=== PATIENT | female | born 1960 | race Caucasian/White ===

== ENCOUNTER 2016-11-04 21:48 | Emergency (ER) | payer MEDICAID ==
[2016-11-04 22:16] VITALS: BP 160/96
[2016-11-04] MEDS ORDERED: Acetaminophen/oxyCODONE 325-5 MG Tab PO ONE (23:14)
--- NOTE | 2016-11-04 23:24 | EDM.PDOC ---
ED HPI GENERAL MEDICAL PROBLEM - General Chief Complaint: ENT Problem Stated Complaint: TOOTH PAIN Time Seen by Provider: 11/04/16 23:00 Source of Information: Reports: Patient History Limitations: Reports: No Limitations - History of Present Illness INITIAL COMMENTS - FREE TEXT/NARRATIVE: 56 year old female presents for evaluation and treatment of tooth pain. Reports the pain is located in the right medial incisor. No trauma to the tooth. Pain started several days ago. She has identified an area she believes is abscessed. She describes the pain as a constant "100 out of 10" pain. Has been taking OTC medications with no relief. Reports the pain extends superiorly into her sinuses. No fevers, chills, nausea or vomiting. She has overall poor dentition. She does not recall the last time she has seen dental. Upper Tooth/Teeth Pain Score (Numeric/FACES): 10 - Related Data Allergies Allergy/AdvReac Type Severity Reaction Status Date / Time No Known Allergies Allergy Verified 11/04/16 22:16 Home Meds: Home Meds Amoxicillin/Clavulanate K [Augmentin 875 MG/125 MG] 1 tab PO Q12HR #19 tablet [Rx] Aspirin [Ecotrin] 11/04/16 [History] Hydrocodone/Acetaminophen [Piedmont 5-325] 1 tab PO Q6H PRN #10 tablet 11/04/16 [Rx ] Metoprolol Tartrate 11/04/16 [History] Ticagrelor [Brilinta] 11/04/16 [History] atorvaSTATin [Lipitor] 40 mg PO BEDTIME 11/04/16 [History] Past Medical History Cardiovascular History: Reports: Hypertension Social & Family History - Family History Family Medical History: Noncontributory ED ROS ENT - Review of Systems Review Of Systems: See Below Constitutional: Denies: Fever, Chills HEENT: Reports: Dental Pain (right superior, medial incisor ), Sinus Problem GI/Abdominal: Denies: Nausea, Vomiting ED EXAM, ENT - Physical Exam Exam: See Below Exam Limited By: No Limitations General Appearance: Alert, WD/WN, No Apparent Distress Ears: Normal External Exam, Normal Canal, Hearing Grossly Normal, Normal TMs Nose: Normal Inspection Mouth/Throat: Normal Inspection, Dental Abcess (#8), Dental Pain (#8), Dental Tenderness (#8), Dental Trauma (multiple missing and broken teeth), Gum Swelling (and gum erythema), Other (diffuse dental disears with multiple carries ; tooth #8 has severe carries extending into the dentin) Respiratory/Chest: No Respiratory Distress, Lungs Clear, Normal Breath Sounds Cardiovascular: Normal Peripheral Pulses, Regular Rate, Rhythm Neurological: Alert, Oriented, Normal Cognition Psychiatric: Normal Affect, Normal Mood Skin: Warm, Dry, Normal Color Course - Vital Signs Last Recorded V/S: Last Vital Signs Temp 36.9 C 11/04/16 22:14 Pulse 94 11/04/16 22:14 Resp 18 11/04/16 22:14 BP 160/96 H 11/04/16 22:14 Pulse Ox 98 11/04/16 22:14 - Orders/Labs/Meds Meds: Medications Discontinued Medications Generic Name Dose Route Start Last Admin Trade Name Freq PRN Reason Stop Dose Admin Amoxicillin/Clavulanate Potassium 1 tab 11/04/16 23:25 11/04/16 23:50 Augmentin 875 Mg/125 Mg PO 11/04/16 23:26 1 tab ONETIME ONE Administration Oxycodone/Acetaminophen 1 tab 11/04/16 23:14 11/04/16 23:19 Percocet 325-5 Mg PO 11/04/16 23:15 1 tab ONETIME ONE Administration Departure - Departure Time of Disposition: 23:15 Disposition: Home, Self-Care 01 Condition: Fair Clinical Impression: Dental abscess - Discharge Information Prescriptions: Amoxicillin/Clavulanate K [Augmentin 875 MG/125 MG] 1 tab PO Q12HR #19 tablet Hydrocodone/Acetaminophen [Piedmont 5-325] 1 tab PO Q6H PRN #10 tablet PRN Reason: Pain Instructions: Dental Abscess, [id number] Referrals: PCP,None [Primary Care Provider] - Forms: ED Department Discharge Additional Instructions: Take the Augmentin as prescribed. 1 tab twice a day for 10 days. your first dose was given in the ER. Take this medication with food. Recommend a probiotic or yogurt. [id number] ibuprofen 600 mg every 6 hours for pain. Her pain not relieved by ibuprofen you may take one Piedmont every 6 hours as needed for severe pain. Do not drive or operate machinery within 12 hours of taking the Piedmont. Piedmont can be habit-forming, take as few as needed to control your pain. See a dentist as soon as you're able to. If you require financial services I recommend bridging the gap in [place] is able to work with uninsured and underinsured. call [phone] to discuss with them further. Please return to ER if your symptoms change or worsen.
[2016-11-04] MEDS ORDERED: Amoxicillin/Clavulanate K 875-125 MG Tab PO ONE (23:25)
== END 2016-11-04 23:53 | disposition home or self-care (01) ==
LOC: JD.ED 21:48
DX: K04.7 Periapical abscess without sinus (principal); I10 Essential (primary) hypertension; Z79.82 Long term (current) use of aspirin
CPT/HCPCS: 99282; A9270; 99283

== ENCOUNTER 2016-12-23 18:45 | Emergency (ER) | payer MEDICAID ==
[2016-12-23 19:01] VITALS: BP 143/78
[2016-12-23] MEDS ORDERED: Acetaminophen/oxyCODONE 325-5 MG Tab PO ONE (19:07)
[2016-12-23] MEDS ORDERED: Gentamicin 0.3% Ophth Soln 15 ML Bottle EARRT ONE (19:08)
--- NOTE | 2016-12-23 19:09 | EDM.PDOC ---
ED HPI GENERAL MEDICAL PROBLEM - General Chief Complaint: ENT Problem Stated Complaint: poss right ear infection Time Seen by Provider: 12/23/16 19:03 Source of Information: Reports: Patient History Limitations: Reports: No Limitations - History of Present Illness INITIAL COMMENTS - FREE TEXT/NARRATIVE: 56-year-old female presents to the ED with right ear pain 6 days duration. Unable to touch the ear or sleep on that side. No known injuries to the ear. Current pain is constant throbbing occasional sharp and stabbing but the most part radiates down the right side of her mandible. Some pain with swallowing. She also feels pressure in the year when she holds her nose and blows. Gets temporary relief by doing this. Has had a mild cold over the last week. Denies any cough or sputum production. Hearing is muffled on the right side. Denies any problems with the left side. Onset: Gradual (Develop an of increased pain in ) Onset Date: 12/23/16 Duration: Day(s): Location: Reports: Face (Right ear and jamal-face.) Quality: Reports: Ache, Sharp, Stabbing, Throbbing Severity: Severe Improves with: Reports: None (Current pain is 8 out of 10.) Worsens with: Reports: Other Context: Denies: Activity, Exercise, Lifting, Sick Contact, Trauma, Other Associated Symptoms: Reports: No Other Symptoms Treatments RESERVE OFFICER: Reports: Other (see below) Other Treatments RESERVE OFFICER: used peroxide in the ear Right Ear Pain Score (Numeric/FACES): 7 - Related Data Allergies Allergy/AdvReac Type Severity Reaction Status Date / Time No Known Allergies Allergy Verified 11/04/16 22:16 Home Meds: Home Meds Aspirin [Ecotrin] 81 mg PO DAILY 11/04/16 [History] Metoprolol Tartrate 25 mg PO DAILY 11/04/16 [History] Ticagrelor [Brilinta] 90 mg PO DAILY 11/04/16 [History] atorvaSTATin [Lipitor] 40 mg PO BEDTIME 11/04/16 [History] Amoxicillin/Potassium Clav [Augmentin 500-125 Tablet] 1 each PO BID #16 tablet 12/23/16 [Rx] oxyCODONE HCl/Acetaminophen [Percocet 5-325 mg Tablet] 1 - 2 each PO Q4H PRN # 20 tablet 12/23/16 [Rx] Past Medical History Cardiovascular History: Reports: High Cholesterol, Hypertension, [place], Stents Social & Family History - Family History Family Medical History: Noncontributory - Tobacco Use Smoking Status *Q: Current Every Day Smoker Years of Tobacco use: 30 Packs/Tins Daily: 0.3 - Caffeine Use Caffeine Use: Reports: Soda - Recreational Drug Use Recreational Drug Use: No - Living Situation & Occupation Living situation: Reports: Occupation: Unemployed (Her and her relocated from [place] to [place] within the last 3 weeks.) ED ROS ENT - Review of Systems Review Of Systems: See Below Constitutional: Denies: Fever, Chills, Malaise, Weakness, Fatigue, Decreased Appetite, Weight Loss HEENT: Reports: Ear Pain. Denies: Ear Discharge (Severe right side), Eye Discharge, Eye Pain Respiratory: Reports: Shortness of Breath (On exertion.), Cough (Cough from cigarette smoking.), Sputum (Occasional brownish sputum production) Cardiovascular: Reports: No Symptoms, Dyspnea on Exertion Endocrine: Reports: No Symptoms GI/Abdominal: Reports: No Symptoms : Reports: No Symptoms Musculoskeletal: Reports: Back Pain, Joint Pain (Knees and hips occasionally.) Skin: Reports: No Symptoms Neurological: Reports: No Symptoms Psychiatric: Reports: No Symptoms Hematologic/Lymphatic: Reports: No Symptoms Immunologic: Reports: No Symptoms ED EXAM, ENT - Physical Exam Exam: See Below Exam Limited By: No Limitations General Appearance: Alert, WD/WN, Mild Distress Eye Exam: Bilateral Eye: Normal Inspection Ears: Auricular Tenderness (Severe on palpation of the tragus right side), Canal Swelling (Moderate anterior inferiorly.), TM Dullness, TM Fluid. No: Normal Canal, Hearing Grossly Normal, Normal TMs, Mastoid Swelling, Mastoid Tenderness, Canal Blood, Canal Discharge, Canal Foreign Body, TM Erythema, TM Blood Nose: Normal Inspection Mouth/Throat: Normal Inspection, Normal Gums, Normal Lips, Normal Teeth Head: Atraumatic, Normocephalic Neck: Normal Inspection, Supple, Non-Tender, Full Range of Motion. No: Lymphadenopathy (L), Lymphadenopathy (R) Course - Vital Signs Last Recorded V/S: Last Vital Signs Temp 36.8 C 12/23/16 18:59 Pulse 89 12/23/16 18:59 Resp 20 12/23/16 18:59 BP 143/78 H 12/23/16 18:59 Pulse Ox 98 09/30/17 18:59 - Orders/Labs/Meds Meds: Medications Discontinued Medications Generic Name Dose Route Start Last Admin Trade Name Manju PASTOR Reason Stop Dose Admin Gentamicin Sulfate 5 ml 12/23/16 19:08 12/23/16 19:22 Garamycin 0.3% Ophth Soln EARRT 12/23/16 19:09 5 ml ONETIME ONE Administration Oxycodone/Acetaminophen 2 tab 12/23/16 19:07 12/23/16 19:22 Percocet 325-5 Mg PO 12/23/16 19:08 2 tab ONETIME ONE Administration - Radiology Interpretation Free Text/Narrative:: 56-year-old female presents to the ED with 6 day duration of right ear pain that is gradually worsening. Unable to touch the ear or to lay down to sleep on that side. No known injuries. No previous similar problems. Appreciates muffled hearing on the right side. Pain also in the ear with swallowing. Has had mild cold symptoms over the last week. Denies cough or sputum production. Does not feel her sinuses are congested. Examination reveals exquisite tenderness on tugging on the earlobe and touching the tragus. She has an otitis externa involving the anterior and inferior aspect of the ear canal. Only small portion of the eardrum could be visualized appears to be mildly erythematous with full of fluid with a serous otitis media. There are falx itself is normal was no cervical adenopathy. Mild pain anterior to the air in the distribution of the temporal mandibular joint. Treated with gentamicin eardrops 2 drops every 3 hours for 2 days then 2 drops 4 times daily for another week. Placed on Augmentin 500 mg twice daily for the next 8 days to clear up infection. Primarily in the middle ear cavity. Pain relief will be Percocet 5/3/25 milligrams one or 2 every 4-6 hours for pain relief. She will continue either Aleve 2 tablets every 8 hours or Motrin 6 mg every 6 hours for pain and inflammation relief. She is to expect marked improvement over the next 72 hours. Departure - Departure Time of Disposition: :09 Disposition: Home, Self-Care 01 Condition: Fair Clinical Impression: Otitis externa Qualifiers: Otitis externa type: other infective Chronicity: acute Laterality: right Qualified Code(s): H60.391 - Other infective otitis externa, right ear - Discharge Information Prescriptions: Amoxicillin/Potassium Clav [Augmentin 500-125 Tablet] 1 each PO BID #16 tablet oxyCODONE HCl/Acetaminophen [Percocet 5-325 mg Tablet] 1 - 2 each PO Q4H PRN # 20 tablet PRN Reason: pain relief. Instructions: Otitis Externa, [id number] Referrals: PCP,None [Primary Care Provider] - Forms: ED Department Discharge Additional Instructions: Evaluation in the emergency room today in regards to severe right ear pain 6 days. Examination reveals reveals an infection in the ear canal on the right side with partial occlusion of the ear canal from swelling. This is causing pain to be referred into the jaw joint and down to the mandible and neck. Treatment is gentamicin drops 2 drops to the right ear every 3 hours for 2 days then 4 times daily for 7 day Antibiotic Augmentin 500 mg twice daily for 8 days as well to help clear up infection. Continue Aleve 2 tablets every 8 hours or Motrin 600 mg every 6 hours for pain and inflammation. Percocet tablets 07/26/24 one or 2 every 4-6 hours for pain relief. Expect marked improvement over the next 72 hours. Follow-up if her is not completely back to normal in 8 days time.
== END 2016-12-23 19:25 | disposition home or self-care (01) ==
LOC: JD.ED 18:45
DX: H60.391 Other infective otitis externa, right ear (principal); E78.00 Pure hypercholesterolemia, unspecified; I10 Essential (primary) hypertension; I25.2 Old myocardial infarction; F17.210 Nicotine dependence, cigarettes, uncomplicated; Z79.82 Long term (current) use of aspirin; Z79.899 Other long term (current) drug therapy
CPT/HCPCS: 99283; A9270

== ENCOUNTER 2017-01-28 13:41 | Emergency (ER) | payer MEDICAID, OTHER ==
[2017-01-28 13:59] VITALS: BP 158/94
--- NOTE | 2017-01-28 14:46 | EDM.PDOC ---
ED HPI GENERAL MEDICAL PROBLEM - General Chief Complaint: ENT Problem Stated Complaint: EAR PAIN Time Seen by Provider: 01/28/17 13:51 Source of Information: Reports: Patient History Limitations: Reports: No Limitations - History of Present Illness INITIAL COMMENTS - FREE TEXT/NARRATIVE: The patient presents with right ear pain. She has had trouble with her ear since the end of November. She had otitis externa that was treated with amoxicillin and ear drops. She did get better for awhile. The pain came back a couple weeks ago. She went to the clinic in [place] and they irrigated her ear and got out some white drainage. They did not put her on any antibiotics. She still has pain and she has decreased hearing. She is non toxic. She has no fever or chills. She has never had trouble with that ear before. Onset: Gradual Duration: Week(s): Location: Reports: Other (right ear) Quality: Reports: Sharp Severity: Severe Improves with: Reports: None Worsens with: Reports: None Associated Symptoms: Reports: No Other Symptoms Right Ear Pain Score (Numeric/FACES): 7 - Related Data Allergies Allergy/AdvReac Type Severity Reaction Status Date / Time No Known Allergies Allergy Verified 11/04/16 22:16 Home Meds: Home Meds Aspirin [Ecotrin] 81 mg PO DAILY 11/04/16 [History] Metoprolol Tartrate 25 mg PO DAILY 11/04/16 [History] Ticagrelor [Brilinta] 90 mg PO DAILY 11/04/16 [History] atorvaSTATin [Lipitor] 40 mg PO BEDTIME 11/04/16 [History] Ofloxacin [Floxin 0.3% Otic Soln] 3 drop EARRT BID #1 bottle 01/28/17 [Rx] oxyCODONE HCl/Acetaminophen [Percocet 5-325 mg Tablet] 1 - 2 each PO Q6HR PRN # 20 tablet 01/28/17 [Rx] Past Medical History Cardiovascular History: Reports: High Cholesterol, Hypertension, [place], Stents Social & Family History - Family History Family Medical History: Noncontributory - Tobacco Use Smoking Status *Q: Current Every Day Smoker Years of Tobacco use: 20 Packs/Tins Daily: 0.3 - Caffeine Use Caffeine Use: Reports: Soda - Recreational Drug Use Recreational Drug Use: No - Living Situation & Occupation Living situation: Reports: Occupation: Unemployed (Her and her relocated from [place] to [employer] within the last 3 weeks.) ED ROS ENT - Review of Systems Review Of Systems: See Below Constitutional: Reports: No Symptoms HEENT: Reports: Ear Pain Respiratory: Reports: No Symptoms Cardiovascular: Reports: No Symptoms Endocrine: Reports: No Symptoms GI/Abdominal: Reports: No Symptoms : Reports: No Symptoms Musculoskeletal: Reports: No Symptoms ED EXAM, ENT - Physical Exam Exam: See Below Exam Limited By: No Limitations General Appearance: Alert, No Apparent Distress Ears: Other (Pain upon palpation to the tragus. No edema or pain behind the ear. Erythema to the TM and a large perforation with white, thick discharge.) Course - Vital Signs Last Recorded V/S: Last Vital Signs Temp 97.0 F 01/28/17 13:57 Pulse 89 01/28/17 13:57 Resp 20 01/28/17 13:57 BP 158/94 H 01/28/17 13:57 Pulse Ox 98 01/28/17 13:57 - Re-Assessments/Exams Free Text/Narrative Re-Assessment/Exam: 01/28/17 14:[address] Alford at [facility] in [place] and he recommended ofoxacin drops and he would like to see her next week. Departure - Departure Time of Disposition: 14:50 Disposition: Home, Self-Care 01 Condition: Good Clinical Impression: Otitis media Qualifiers: Otitis media type: suppurative Chronicity: acute Laterality: right Recurrence: recurrent Spontaneous tympanic membrane rupture: with spontaneous rupture Qualified Code(s): H66.014 - Acute suppurative otitis media with spontaneous rupture of ear drum, recurrent, right ear - Discharge Information Prescriptions: oxyCODONE HCl/Acetaminophen [Percocet 5-325 mg Tablet] 1 - 2 each PO Q6HR PRN # 20 tablet PRN Reason: Pain Ofloxacin [Floxin 0.3% Otic Soln] 3 drop EARRT BID #1 bottle Referrals: PCP,None [Primary Care Provider] - Additional Instructions: Use the ofoxacin drops 3 drops in the right ear 2 times per day for 1 week. Take the percocet 1 to 2 pills every 6 hours as needed for pain. Follow up with Dr Alford or one of his partners at the ENT clinic at [facility]. His number is . Please return if you are worse.
== END 2017-01-28 15:00 | disposition home or self-care (01) ==
LOC: JD.ED 13:41
DX: H66.014 Acute suppurative otitis media with spontaneous rupture of ear drum, recurrent, right ear (principal); F17.210 Nicotine dependence, cigarettes, uncomplicated; Z79.82 Long term (current) use of aspirin; Z79.899 Other long term (current) drug therapy
CPT/HCPCS: 99283

== ENCOUNTER 2017-02-02 10:48 | Emergency (ER) | payer MEDICAID, OTHER ==
--- NOTE | 2017-02-02 11:52 | EDM.PDOC ---
ED HPI GENERAL MEDICAL PROBLEM - General Chief Complaint: Cardiovascular Problem Stated Complaint: SOB/HX OF HEART ISSUES Time Seen by Provider: 02/02/17 11:55 Source of Information: Reports: Patient History Limitations: Reports: No Limitations - History of Present Illness INITIAL COMMENTS - FREE TEXT/NARRATIVE: Patient is a 57-year-old female who has a history of heart attack with stent placement approximately one year ago in [facility]. She was placed on brilinta, BB, statin, and ASA. States due to insurance coverage she was unable to continue on effient. Thus was taking brilinta samples given by Cardiologists every month. States approximately 2 months ago her and herself moved to [place] for work. 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 She is not been taking any of her prescribed medications for her heart since moving. She's continues take baby aspirin every day. States since moving here she has gained approximately 15 pounds over the past 2 months with increased shortness of breath with exertion. Denies any orthopnea or PND. Denies any chest pain, nausea vomiting, diaphoresis, back pain , pain in her neck, pain into her arm, blood in stools. Patient states they ruled out pulmonary hypertension with her episode of having a heart attack. She has no history of DVT/PE. Denies any lower leg swelling and pain. She is on no additional medications. Of note patient is gained approximate 60 pounds since her [place] in total. - Related Data Allergies Allergy/AdvReac Type Severity Reaction Status Date / Time No Known Allergies Allergy Verified 02/02/17 10:57 Home Meds: Home Meds Aspirin [Ecotrin] 81 mg PO DAILY 11/04/16 [History] Ofloxacin [Floxin 0.3% Otic Soln] 3 drop EARRT BID #1 bottle 01/28/17 [Rx] oxyCODONE HCl/Acetaminophen [Percocet 5-325 mg Tablet] 1 - 2 each PO Q6HR PRN # 20 tablet 01/28/17 [Rx] Metoprolol Tartrate 25 mg PO BID #60 tablet 02/02/17 [Rx] Ticagrelor [Brilinta] 90 mg PO DAILY #30 tablet 02/02/17 [Rx] atorvaSTATin [Lipitor] 40 mg PO BEDTIME #30 tablet 02/02/17 [Rx] Past Medical History HEENT History: Reports: Impaired Vision, Otitis Media, Other (See Below) Other HEENT History: "My teeth are really bad." Cannot afford glasses. 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: Musculoskeletal History: Reports: Fracture, Gout Neurological History: Reports: Migraines - Infectious Disease History Infectious Disease History: Reports: Chicken Pox Social & Family History - Family History Family Medical History: Noncontributory - Tobacco Use Smoking Status *Q: Current Every Day Smoker Years of Tobacco use: 20 Packs/Tins Daily: 0.3 Second Hand Smoke Exposure: Yes - Caffeine Use Caffeine Use: Reports: Soda - Recreational Drug Use Recreational Drug Use: No - Living Situation & Occupation Living situation: Reports: Occupation: Unemployed (Her and her relocated from [place] to [place] within the last 3 weeks.) ED ROS GENERAL - Review of Systems Review Of Systems: See Below ED EXAM, GENERAL - Physical Exam Exam: See Below Exam Limited By: No Limitations General Appearance: Alert, WD/WN, No Apparent Distress Ears: Hearing Grossly Normal Nose: Normal Inspection Throat/Mouth: Normal Voice, No Airway Compromise Neck: Normal Inspection, Supple Respiratory/Chest: No Respiratory Distress, Lungs Clear, Normal Breath Sounds, No Accessory Muscle Use, Chest Non-Tender Cardiovascular: Normal Peripheral Pulses, Regular Rate, Rhythm, No Murmur ( obvious) Peripheral Pulses: 2+: Radial (L), Radial (R) GI/Abdominal: Normal Bowel Sounds, Soft, Non-Tender, No Organomegaly, No Distention Back Exam: Normal Inspection Extremities: Normal Inspection, Non-Tender, No Pedal Edema, Normal Capillary Refill Neurological: Alert, Oriented, CN II-XII Intact, Normal Cognition, No Motor/ Sensory Deficits Psychiatric: Normal Affect, Normal Mood Skin Exam: Warm, Dry, Intact, Normal Color Course - Vital Signs Last Recorded V/S: Last Vital Signs Temp 97.4 F 02/02/17 10:55 Pulse 88 02/02/17 14:50 Resp 18 02/02/17 14:50 BP 107/69 02/02/17 14:50 Pulse Ox 95 02/02/17 14:50 - Orders/Labs/Meds Orders: Active Orders 24 hr Category Date Time Status EKG 12 Lead [EKG Documentation Completion] [RC] STAT Care 02/02/17 14:25 Active Labs: Laboratory Tests 02/02/17 02/02/17 02/02/17 Range/Units 11:30 11:30 11:30 WBC 8.73 (3.98-10.04) K/mm3 RBC 4.69 (3.98-5.22) M/mm3 Hgb 13.7 (11.2-15.7) gm/L Hct 41.8 (34.1-44.9) % MCV 89.1 (79.4-94.8) fl MCH 29.2 (25.6-32.2) pg MCHC 32.8 (32.2-35.5) g/dl RDW Std Deviation 44.5 (36.4-46.3) fL Plt Count 248 (182-369) K/mm3 MPV 11.8 (9.4-12.3) fl Neut % (Auto) 43.8 (34.0-71.1) % Lymph % (Auto) 43.5 (19.3-51.7) % Murray % (Auto) 6.9 (4.7-12.5) % Eos % (Auto) 5.3 (0.7-5.8) Baso % (Auto) 0.3 (0.1-1.2) % Neut # (Auto) 3.82 (1.56-6.13) K/mm3 Lymph # (Auto) 3.80 H (1.18-3.74) K/mm3 Murray # (Auto) 0.60 H (0.24-0.36) K/mm3 Eos # (Auto) 0.46 H (0.04-0.36) K/mm3 Baso # (Auto) 0.03 (0.01-0.08) K/mm3 PT 10.3 (8.0-13.0) SECONDS INR 0.95 APTT 25 (22-36) SECONDS Sodium 141 (136-145) mEq/L Potassium 4.2 (3.5-5.1) mEq/L Chloride 107 (98-107) mEq/L Carbon Dioxide 25 (21-32) mEq/L Anion Gap 13.2 (5-15) BUN 23 H (7-18) mg/dL Creatinine 1.1 H (0.55-1.02) mg/dL Est Cr Clr Drug Dosing 62.49 mL/min Estimated GFR (MDRD) 52 (>60) mL/min BUN/Creatinine Ratio 20.9 H (14-18) Glucose 172 H (74-106) mg/dL Calcium 9.6 (8.5-10.1) mg/dL Total Bilirubin 0.2 (0.2-1.0) mg/dL AST 29 (15-37) U/L ALT 43 (14-59) U/L Alkaline Phosphatase 218 H (46-116) U/L Troponin I < 0.017 (0.00-0.056) ng/mL C-Reactive Protein 2.8 H* (<1.0) mg/dL NT-Pro-B Natriuret Pep 34 (0-125) pg/mL Total Protein 7.6 (6.4-8.2) g/dl Albumin 2.9 L (3.4-5.0) g/dl Globulin 4.7 gm/dL Albumin/Globulin Ratio 0.6 L (1-2) - Re-Assessments/Exams Free Text/Narrative Re-Assessment/Exam: IV established. Initial labs and studies include CBC, chem 14, CRP, coag studies , proBNP, troponin, chest x-ray one view, and EKG. Will have patient sign consent to obtain medical records from [facility]. EKG: Sinus bradycardia at a rate of [address] changes noted. 02/02/17 12:29 chest x-ray reviewed with Dr. Dugan. Tortuous aorta with mild increased pulmonary vascularization. Final interpretation is pending. 02/02/17 12:[address] [facility]. Patient had an STEMI with proximal LAD stent placement. This was complicated by acute stent thrombosis. She has many bare metal stents to the proximal LAD. She is supposed be taking metoprolol tartrate 25 mg 1 tablet with food twice daily, atorvastatin calcium 40 mg tablet 1 tablet orally once a day, Effient 10 mg tablet orally, aspirin 81 mg tablet daily. As dicatated in the HPI patient has been taking brilinta due to insurance not covering effient. 02/02/17 14:25 Labs reviewed: CBC essentially normal. Sodium 141, potassium 4.2 , AG 13.2, creatinine 1.1, glucose 172, alk phosphatase to 18, troponin less than 0.017, and CRP mildly elevated 2.8. Pro BNP was 34. Patient has [place] Medicaid. Unclear if brilinta and or effiient will be covered without prior authorization.Contacted [facility]. States plavix and brilinta will be covered for sure. Will discharge patient home with prescription for metoprolol, atorvastatin, and brilinta. She has appointment with [facility] 02/07/2017. Departure - Departure Time of Disposition: 14:25 Disposition: Home, Self-Care 01 Condition: Good Clinical Impression: SOBOE (shortness of breath on exertion), Presence of bare metal stent in LAD coronary artery Prescriptions: atorvaSTATin [Lipitor] 40 mg PO BEDTIME #30 tablet Metoprolol Tartrate 25 mg PO BID #60 tablet Ticagrelor [Brilinta] 90 mg PO DAILY #30 tablet Instructions: Shortness of Breath, [id number] Referrals: PCP,None [Primary Care Provider] - Forms: ED Department Discharge Additional Instructions: As discussed will have you start taking the atorvastatin, Brilinta, metoprolol, and aspirin as prescribed. Keep appointment with data control clerk for 07 of February as scheduled. Stop smoking. Eat a balanced cardiac diet. Refrain from any activities that cause worsening of symptoms. Return to the ED if you develop any new or worsening symptoms. - My Orders Last 24 Hours: My Active Orders 02/02/17 14:25 EKG 12 Lead [EKG Documentation Completion] [RC] STAT - Assessment/Plan Last 24 Hours: My Active Orders 02/02/17 14:25 EKG 12 Lead [EKG Documentation Completion] [RC] STAT
--- NOTE | 2017-02-02 13:15 | CR ---
Chest: Portable view of the chest was obtained. Comparison: No prior study. Heart size and mediastinum are within normal limits for portable technique. Lungs are clear. Bony structures are grossly intact. Impression: 1. Nothing acute is identified on portable chest x-ray. Diagnostic code #1
[2017-02-02 17:48] VITALS: BP 107/69
== END 2017-02-02 14:50 | disposition home or self-care (01) ==
LOC: JD.ED 10:48
DX: R06.02 Shortness of breath (principal); I10 Essential (primary) hypertension; E78.00 Pure hypercholesterolemia, unspecified; I25.2 Old myocardial infarction; F17.210 Nicotine dependence, cigarettes, uncomplicated; Z95.5 Presence of coronary angioplasty implant and graft; Z79.82 Long term (current) use of aspirin; Z79.899 Other long term (current) drug therapy
CPT/HCPCS: 36415; 71010; 71010-26; 80053; 83880; 84484; 85025; 85610; 85730; 86140; 93005; 93010; 99284; 99285-25

== ENCOUNTER 2017-06-16 17:41 | Emergency (ER) | payer MEDICAID ==
[2017-06-16 17:52] VITALS: BP 160/91
[2017-06-16] MEDS ORDERED: Ketorolac 60 MG/2 ML SDV IM ONE (18:49)
--- NOTE | 2017-06-16 20:35 | EDM.PDOC ---
ED HPI GENERAL MEDICAL PROBLEM - General Chief Complaint: Respiratory Problem Stated Complaint: HARD TIME BREATHING COLD/BACK PAINPC Time Seen by Provider: 06/16/17 20:33 Source of Information: Reports: Patient History Limitations: Reports: No Limitations - History of Present Illness INITIAL COMMENTS - FREE TEXT/NARRATIVE: 57-year-old female presents for evaluation and treatment of shortness of breath and back pain. Para patient reports that she is experiencing shortness of breath and wheezing. States that this is worse at night. Has been going on for about the last 4 weeks. She did have a cold some time ago. Reports coughing fits associated with this. She denies any fevers, nausea, vomiting, chest pain or diaphoresis. States she does get short of breath on exertion. Has a significant cardiac history for NE about one year ago. 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 She is currently on Effient. She reports that she was diagnosed with allergy some years ago. She was previously on inhalers and this seemed to help with her shortness of breath and wheezing. She feels that this is allergies today. No fevers, chills or nausea. Patient is also complaining of low back pain. Since this is been well for several years. It is located across her lower back. Worse with standing. Improves with sitting. She reports some radiation into her right lateral leg. No numbness or tingling in the leg. No weakness in the legs. Back Pain Score (Numeric/FACES): 10 - Related Data Allergies Allergy/AdvReac Type Severity Reaction Status Date / Time No Known Allergies Allergy Verified 02/02/17 10:57 Home Meds: Home Meds Aspirin [Ecotrin] 81 mg PO DAILY 11/04/16 [History] Metoprolol Tartrate 25 mg PO BID #60 tablet 02/02/17 [Rx] atorvaSTATin [Lipitor] 40 mg PO BEDTIME #30 tablet 02/02/17 [Rx] Albuterol [IMW: Ventolin HFA] 2 puff INH .TWICE DAILY #18 gm 06/16/17 [Rx] Orphenadrine [Norflex] 100 mg PO BID PRN #20 tab.er 06/16/17 [Rx] Prasugrel [Effient] 10 mg PO DAILY 06/16/17 [History] Past Medical History HEENT History: Reports: Impaired Vision, Otitis Media Other HEENT History: "My teeth are really bad." Cannot afford glasses. 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: Musculoskeletal History: Reports: Fracture, Gout Neurological History: Reports: Migraines - Infectious Disease History Infectious Disease History: Reports: Chicken Pox Social & Family History - Family History Family Medical History: Noncontributory - Tobacco Use Smoking Status *Q: Current Every Day Smoker Years of Tobacco use: 30 Packs/Tins Daily: 0.1 Used Tobacco, but Quit: No Second Hand Smoke Exposure: Yes - Caffeine Use Caffeine Use: Reports: Soda - Recreational Drug Use Recreational Drug Use: No - Living Situation & Occupation Living situation: Reports: Occupation: Unemployed (Her and her relocated from [place] to [place] within the last 3 weeks.) ED ROS GENERAL - Review of Systems Review Of Systems: See Below Constitutional: Denies: Fever Respiratory: Reports: Shortness of Breath, Wheezing, Cough Cardiovascular: Denies: Chest Pain Course - Vital Signs Last Recorded V/S: Last Vital Signs Temp 36.5 C 06/16/17 17:48 Pulse 87 06/16/17 17:48 Resp 18 06/16/17 17:48 BP 160/91 H 06/16/17 17:48 Pulse Ox 98 06/16/17 17:48 - Orders/Labs/Meds Meds: Medications Discontinued Medications Generic Name Dose Route Start Last Admin Trade Name Freq PRN Reason Stop Dose Admin Ketorolac Tromethamine 60 mg 06/16/17 18:49 06/16/17 18:59 Toradol IM 06/16/17 18:50 60 mg ONETIME ONE Administration - Radiology Interpretation Free Text/Narrative:: Chest x-ray shows no acute intrathoracic process. Departure - Departure Time of Disposition: 20:46 Disposition: Home, Self-Care 01 Condition: Fair Clinical Impression: Wheezing Back pain Qualifiers: Back pain location: low back pain Chronicity: chronic Back pain laterality: bilateral Sciatica presence: with sciatica Sciatica laterality: sciatica of right side Qualified Code(s): M54.41 - Lumbago with sciatica, right side - Discharge Information Prescriptions: Albuterol [IMW: Ventolin HFA] 2 puff INH .TWICE DAILY #18 gm Orphenadrine [Norflex] 100 mg PO BID PRN #20 tab.er PRN Reason: Muscle Spasm Instructions: Back Pain, Adult, Back Exercises Referrals: PCP,None [Primary Care Provider] - Katie Pike PA-C [Ordering Only Provider] - Forms: ED Department Discharge Additional Instructions: Recommended to establish with a primary care provider. If you would like to stay with [facility] recommend Katie Conner or Arabella Kay. Call [phone] to schedule with one of these providers. Recommend following up with one of them the next 1-2 weeks for recheck of your symptoms. Albuterol inhaler 1-2 puffs every 4-6 hours as needed for wheezing and shortness of breath. Continue with the ibuprofen as needed for back pain. Also recommend using icy hot, BenGay, ice or heat for additional pain relief. You may take Norflex 1 tab twice daily as needed for muscle spasms. Please return to the ER if your symptoms change or worsen.
--- NOTE | 2017-06-17 12:47 | CR ---
Chest: Two views of the chest were obtained. Comparison: Prior chest x-ray of 02/02/17. Heart size and mediastinum are normal. Slight atelectasis is seen on the lateral view anteriorly. Lungs otherwise are clear. Bony structures appear within normal limits for the patient's age. Impression: 1. Nothing acute is appreciated on two-view chest x-ray. Diagnostic code #2
== END 2017-06-16 20:58 | disposition home or self-care (01) ==
LOC: JD.ED 17:41
DX: M54.41 Lumbago with sciatica, right side (principal); J45.909 Unspecified asthma, uncomplicated; I10 Essential (primary) hypertension; E78.00 Pure hypercholesterolemia, unspecified; I25.2 Old myocardial infarction; F17.210 Nicotine dependence, cigarettes, uncomplicated; Z79.82 Long term (current) use of aspirin; Z79.899 Other long term (current) drug therapy
CPT/HCPCS: 71046; 96372; 99283; J1885

== ENCOUNTER 2017-10-06 16:39 | Emergency (ER) | payer MEDICAID ==
[2017-10-06 16:48] VITALS: BP 142/92
--- NOTE | 2017-10-06 17:52 | EDM.PDOC ---
ED HPI GENERAL MEDICAL PROBLEM - General Chief Complaint: Back Pain or Injury Stated Complaint: BACK/SIDE PAIN Time Seen by Provider: 10/06/17 17:38 Source of Information: Reports: Patient, Family (Significant other) History Limitations: Reports: No Limitations - History of Present Illness INITIAL COMMENTS - FREE TEXT/NARRATIVE: 57-year-old female attends the ED with her significant other with complaints of severe right upper mid back pain. She states that movement causes the pain to become much worse. If she holds perfectly still and does not take a real deep breath she has no pain. She has had no falls or injuries to injure her back. She 's had no see is similar problems although she has had kidney stones in the past. She states this doesn't feel like a kidney stone. Pain started 4-5 days ago and is progressively worsening. It is worse when she is trying to lie down or get up from bed. Denies increased cough or sputum production. No fever or chills. She can make the pain worse by deep inspiration as well. Onset: Sudden Onset Date: 10/01/17 Duration: Day(s):, Getting Worse, Waxing/Waning (Initially and was waxing and waning but now it's constant.) Location: Reports: Back (Right upper thorax adjacent to the scapula) Quality: Reports: Ache, Other (Expresses sharp spasms of musculature with certain movements in this area.) Severity: Moderate (Rates the pain as 8 or 9 out of 10 when it comes. At rest and not moving and breathing deeply at 0) Improves with: Reports: Rest Worsens with: Reports: Other, Movement Context: Reports: Other (Spontaneous occurrence for no good reason.). Denies: Activity (Deep inspirations or coughing.), Exercise, Lifting, Sick Contact, Trauma Associated Symptoms: Reports: Shortness of Breath. 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.) Middle Back Pain Score (Numeric/FACES): 10 - Related Data Allergies Allergy/AdvReac Type Severity Reaction Status Date / Time No Known Allergies Allergy Verified 10/06/17 16:48 Home Meds: Home Meds Aspirin [Ecotrin] 81 mg PO DAILY 11/04/16 [History] Metoprolol Tartrate 25 mg PO BID #60 tablet 02/02/17 [Rx] atorvaSTATin [Lipitor] 40 mg PO BEDTIME #30 tablet 02/02/17 [Rx] Albuterol [IMW: Ventolin HFA] 2 puff INH .TWICE DAILY #18 gm 06/16/17 [Rx] Orphenadrine [Norflex] 100 mg PO BID PRN #20 tab.er 06/16/17 [Rx] Diclofenac Sodium [Voltaren] 50 mg PO TID #21 tab.ec 10/06/17 [Rx] oxyCODONE HCl/Acetaminophen [Percocet 5-325 mg Tablet] 1 - 2 each PO Q4H PRN # 20 tablet 10/06/17 [Rx] Past Medical History HEENT History: Reports: Impaired Vision, Otitis Media Other HEENT History: "My teeth are really bad." Cannot afford glasses. 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: Musculoskeletal History: Reports: Fracture, Gout Neurological History: Reports: Migraines - Infectious Disease History Infectious Disease History: Reports: Chicken Pox Social & Family History - Family History Family Medical History: Noncontributory - Tobacco Use Smoking Status *Q: Never Smoker - Caffeine Use Caffeine Use: Reports: Soda - Recreational Drug Use Recreational Drug Use: No - Living Situation & Occupation Living situation: Reports: Occupation: Unemployed (Her and her relocated from [place] to [place] within the last 3 weeks.) ED ROS GENERAL - Review of Systems Review Of Systems: See Below Constitutional: Reports: No Symptoms HEENT: Reports: No Symptoms Respiratory: Reports: Shortness of Breath. Denies: Wheezing, Pleuritic Chest Pain (Can't take a full deep breath as it'll make the pain worse in her right upper posterior back.) Cardiovascular: Denies: Chest Pain Endocrine: Reports: No Symptoms GI/Abdominal: Reports: No Symptoms : Reports: Frequency, Incontinence (Stress incontinence) Musculoskeletal: Reports: Back Pain (Severe right upper mid back pain adjacent to the scapula.) Skin: Reports: No Symptoms ( 5 days. See history of present illness) Neurological: Reports: No Symptoms Psychiatric: Reports: No Symptoms ED EXAM, UPPER BACK/NECK PAIN - Physical Exam Exam: See Below Exam Limited By: No Limitations General Appearance: Alert, WD/WN, Moderate Distress Neck Exam: Non-Tender, Full Range of Motion, Normal Alignment, Normal Inspection. No: Muscle Spasm Nexus Criteria: No: Posterior, Midline Cervical Tenderness, Altered Level of Consciousness, Focal Neurological Deficit, Painful Distraction Injuries Cardiovascular/Respiratory: Regular Rate, Rhythm, No M/R/G, Normal Peripheral Pulses, No JVD GI/Abdominal: Normal Bowel Sounds, Soft, Non-Tender, No Organomegaly, No Abnormal Bruit, No Mass, Pelvis Stable, Other (Abdominal girth limits ability to palpate solid organs.) Back Exam: Muscle Spasm ( Clinically patient has rib head subluxation in this area. right upper thoracic spine ), Other (On examination of her back muscle spasm is appreciated paraspinally just above her bra strap on the right side and travels up to thoracic for vertebra. Point of maximal tenderness is the eighth rib head right back. However there is significant pain on palpation of 7 and 9 as well.) Extremities: Normal Inspection, Normal Range of Motion, Non-Tender, No Pedal Edema Neurologic: No Motor/Sensory Deficits, Alert, Normal Mood/Affect, Oriented x 3 Psychiatric: Normal Affect, Normal Mood Skin Exam: Normal Color, Warm/Dry Course - Vital Signs Last Recorded V/S: Last Vital Signs Temp 36.1 C 10/06/17 16:45 Pulse 74 10/06/17 16:45 Resp 16 10/06/17 16:45 BP 142/92 H 10/06/17 16:45 Pulse Ox 96 10/06/17 16:45 - Radiology Interpretation Free Text/Narrative:: 57-year-old female presents to the ED with a 4-5 day history of severe right upper back pain adjacent to her shoulder blade. No known injuries. She states it just gradually worsened over the last 4-5 days. similar previous problems. She can localize the site of source of pain quite adequately. Examination she has paraspinal muscle tenderness adjacent to the thoracic spine from thoracic 6 to thoracic 10. Maximal point of tenderness is rib head #8. Also marked tenderness on palpation of 7 and ninth rib heads. Clinically she has rib head subluxations area likely from sleeping on her side. Patient advised to seek chiropractic manipulation early next week when the chiropractor offices are open. She currently resides in [place]. Meantime I did place her on Voltaren 50 mg 3 times daily for the next week.She was also given a prescription for Percocet 5/325mg tabs x 20--- 1-2 tabs by mouth every 4 hrs prn for pain relief. Departure - Departure Time of Disposition: 17:48 Disposition: Home, Self-Care 01 Condition: Fair Clinical Impression: Acute thoracic back pain Qualifiers: Back pain laterality: right Qualified Code(s): M54.6 - Pain in thoracic spine - Discharge Information *PRESCRIPTION DRUG MONITORING PROGRAM REVIEWED*: Not Applicable *COPY OF PRESCRIPTION DRUG MONITORING REPORT IN PATIENT RACH: Not Applicable Prescriptions: Diclofenac Sodium [Voltaren] 50 mg PO TID #21 tab.ec oxyCODONE HCl/Acetaminophen [Percocet 5-325 mg Tablet] 1 - 2 each PO Q4H PRN # 20 tablet PRN Reason: pain relief. Instructions: Musculoskeletal Pain Referrals: Katie Pike PA-C [Primary Care Provider] - Forms: ED Department Discharge Additional Instructions: Evaluation in the emergency room today in regards to development of severe right upper mid back pain 3-4 days ago. Certain movements make this pain much worse. At rest you have no pain. Examination reveals marked paraspinal muscle spasm on the right side adjacent to your spine. Identified rib head subluxation at thoracic 7,8 and 9 levels. This means that the rib head is partially dislocated. This usually occurs during deep sleep well or sleeping on her side. Specific injury likely cause this. Treatment is chiropractic manipulation when you are able to get into a chiropractor. In the meantime may take anti- inflammatory Voltaren 50 mg 3 times daily with food and pain medication Percocet 5/325mg -- 1-2 tabs every 4hrs as needed for pain releif . Suggest both medications be taken with food.
== END 2017-10-06 17:56 | disposition home or self-care (01) ==
LOC: JD.ED 16:39
DX: M54.6 Pain in thoracic spine (principal); I10 Essential (primary) hypertension; E78.00 Pure hypercholesterolemia, unspecified; I25.2 Old myocardial infarction; J45.909 Unspecified asthma, uncomplicated; K21.9 Gastro-esophageal reflux disease without esophagitis; Z79.82 Long term (current) use of aspirin; Z79.899 Other long term (current) drug therapy
CPT/HCPCS: 99283; 99284

== ENCOUNTER 2024-12-10 03:42 | Inpatient (IN) | payer BC, OTHER ==
[~2024-12-10 03:42] MED LIST: Ketorolac 30 MG/ML SDV ONE; Ondansetron 4 MG/2 ML SDV ONE; fentaNYL 100 MCG/2 ML SDV ONE
[2024-12-10] MEDS ORDERED: Lactated Ringers 1,000 ML IV ONE (04:06)
[2024-12-10] MEDS ORDERED: metroNIDAZOLE/Normal Saline 100 ML IV ONE (04:13)
[2024-12-10] MEDS ORDERED: Levofloxacin/Dextrose 5%-Water 150 ML IV ONE (04:20)
[2024-12-10] MEDS ORDERED: Ketamine HCL/NACL, ISO-OSM 50 MG/5 ML Syringe ONE (04:30)
[2024-12-10] MEDS ORDERED: Midazolam 1 MG/ML 2 ML SDV ONE (04:31)
[2024-12-10] MEDS ORDERED: fentaNYL 100 MCG/2 ML SDV ONE (04:31)
[2024-12-10] MEDS ORDERED: Dexamethasone 4 MG/ML 5 ML MDV ONE (04:31)
[2024-12-10] MEDS ORDERED: Phenylephrine 1% 10 MG/ML SDV ONE (05:19)
[2024-12-10] MEDS: Iopamidol 612 MG/ML 30 ML SDV IVPUSH ONE (05:20)
[2024-12-10] MEDS: Iopamidol 612 MG/ML 100 ML Bottle IVPUSH ONE (05:20)
[2024-12-10] MEDS: Sodium Chloride 0.9% 10 ML Syringe FLUSH ONE (05:20)
[2024-12-10] MEDS ORDERED: Morphine PF 10 MG/10 ML SDV ONE (05:27)
[2024-12-10] MEDS ORDERED: propofoL 1,000 MG/100 ML 200 ML ONE (05:28)
[2024-12-10] MEDS ORDERED: Lactated Ringers 1,000 ML ONE ×2 (06:01)
[2024-12-10 06:13] LABS: APPEARANCE,URINE CLEAR (Clear)
[2024-12-10 06:14] LABS: GLUCOSE,URINE NEGATIVE (Negative); OCCULT BLOOD,URINE TRACE-INTACT (Negative)
[2024-12-10 06:17] LABS: BASOPHILS ABSOLUTE AUTO 0.0 K/mm3 (0.0-0.2); BASOPHILS PERCENT AUTO 0.2 % (0.0-1.0); EOSINOPHILS ABSOLUTE AUTO 0.0 K/mm3 (0.0-0.4); EOSINOPHILS PERCENT AUTO 0.4 % (0.0-6.0); IMMATURE GRAN ABSOLUTE AUTO 0.02 K/mm3 (0.00-0.05); IMMATURE GRAN PERCENT AUTO 0.2 % (0.0-0.4); LYMPHOCYTES ABSOLUTE AUTO 2.2 K/mm3 (1.0-4.8); LYMPHOCYTES PERCENT AUTO 21.1 % (24.0-44.0); MEAN PLATELET VOLUME 12.6 fl (9.4-12.3); MONOCYTES ABSOLUTE AUTO 0.4 K/mm3 (0.0-0.8); MONOCYTES PERCENT AUTO 3.5 % (0.0-8.0); NEUTROPHILS ABSOLUTE AUTO 7.7 K/mm3 (1.8-7.7); NEUTROPHILS PERCENT AUTO 74.6 % (41.0-71.0); NRBC ABSOLUTE 0.00 (0.00-0.02); NRBC PERCENT 0.0 % (0.0-0.2); PLATELET COUNT,PLT 231 K/mm3 (150-400); RED BLOOD CELL COUNT 4.83 M/mm3 (4.10-5.30); WHITE BLOOD CELL COUNT,WBC 10.37 K/mm3 (3.9-11.3)
[2024-12-10] MEDS ORDERED: Naloxone 0.4 MG/ML SDV IVPUSH PRN (06:18)
[2024-12-10 06:24] LABS: BUPRENORPHINE SCREEN,URINE NEGATIVE (CUTOFF=10); METHADONE SCREEN, URINE NEGATIVE (CUTOFF=200); METHAMPHETAMINES SCREEN, URINE NEGATIVE (CUTOFF=500); OXYCODONE SCREEN,URINE NEGATIVE (CUT0FF=100); THC SCREEN,URINE 20 NG/ML NEGATIVE (CUTOFF=50)
[2024-12-10 06:25] LABS: AMPHETAMINES SCREEN, URINE NEGATIVE (CUTOFF=500)
[2024-12-10 06:26] LABS: SODIUM,NA 142.0 mEq/L (136-145)
[2024-12-10 06:27] LABS: A/G RATIO 0.9 (1-2); ALANINE AMINOTRANSFERASE,ALT 23.0 U/L (14-59); ASPARTATE AMNIOTRANSFERASE,AST 16.0 U/L (15-37); BILIRUBIN TOTAL 0.4 mg/dL (0.2-1.0); BLOOD UREA NITROGEN,BUN 16.0 mg/dL (7-18); CARBON DIOXIDE,CO2 26.0 mEq/L (21-32); CHLORIDE,CL 105.0 mEq/L (98-107); CREATININE 1.4 mg/dL (0.55-1.02); EST CRCL DRUG DOSING (CG) 45.05 mL/min; ESTIMATED GFR 43.0 mL/min (>60); GLUCOSE RANDOM 169.0 mg/dL (70-99); POTASSIUM,K 3.8 mEq/L (3.5-5.1); PROTEIN TOTAL,TP 7.1 g/dl (6.4-8.2)
[2024-12-10 06:28] LABS: ETHANOL BLOOD MEDICAL 0.0 gm% (0.00)
[2024-12-10] MEDS ORDERED: Ondansetron 4 MG/2 ML SDV IVPUSH PRN (06:48)
[2024-12-10] MEDS ORDERED: fentaNYL 100 MCG/2 ML SDV IVPUSH PRN (06:48)
[2024-12-10] MEDS ORDERED: Sodium Chloride 0.9% 10 ML Syringe FLUSH PRN (06:48)
[2024-12-10] MEDS: Ondansetron 4 MG/2 ML SDV ONE (09:26)
[2024-12-10] MEDS: Ketorolac 30 MG/ML SDV ONE (09:26)
[2024-12-10] MEDS: Levofloxacin/Dextrose 5%-Water 150 ML IV ONE (09:26)
[2024-12-10] MEDS: fentaNYL 100 MCG/2 ML SDV ONE (09:26)
[2024-12-10] MEDS: Lactated Ringers 1,000 ML ONE ×2 (09:27→09:28)
[2024-12-10] MEDS: metroNIDAZOLE/Normal Saline 100 ML ONE (09:27)
[2024-12-10] MEDS: Sodium Chloride 0.9% 10 ML Syringe FLUSH SCH (09:29)
[2024-12-10] MEDS: Lactated Ringers 1,000 ML IV SCH (09:35)
[2024-12-10] MEDS: metroNIDAZOLE/Normal Saline 500 MG in Premix Bag 1 BAG IV SCH ×2 (12:38→13:13)
[2024-12-10] MEDS: Levofloxacin/Dextrose 5%-Water 750 MG in Premix Bag 1 BAG IV SCH (13:12)
[2024-12-10] MEDS: Ketamine 200 MG/20 ML MDV IVPUSH ONE (14:57)
[2024-12-10] MEDS: Ketamine 200 MG/20 ML MDV IVPUSH PRN (21:13)
[2024-12-10] MEDS: Ketamine 200 MG/20 ML MDV ONE (21:52)
[2024-12-11] MEDS: Levofloxacin/Dextrose 5%-Water 750 MG in Premix Bag 1 BAG IV SCH (03:57)
[2024-12-11 07:12] LABS: MEAN PLATELET VOLUME 12.6 fl (9.4-12.3); NRBC ABSOLUTE 0.00 (0.00-0.02); NRBC PERCENT 0.0 % (0.0-0.2); PLATELET COUNT,PLT 178 K/mm3 (150-400); RED BLOOD CELL COUNT 3.82 M/mm3 (4.10-5.30); WHITE BLOOD CELL COUNT,WBC 15.39 K/mm3 (3.9-11.3)
[2024-12-11 07:20] LABS: A/G RATIO 0.6 (1-2); ALANINE AMINOTRANSFERASE,ALT 18.0 U/L (14-59); ASPARTATE AMNIOTRANSFERASE,AST 20.0 U/L (15-37); BILIRUBIN TOTAL 0.4 mg/dL (0.2-1.0); BLOOD UREA NITROGEN,BUN 20.0 mg/dL (7-18); CARBON DIOXIDE,CO2 27.0 mEq/L (21-32); CHLORIDE,CL 109.0 mEq/L (98-107); CREATININE 1.4 mg/dL (0.55-1.02); EST CRCL DRUG DOSING (CG) 45.05 mL/min; ESTIMATED GFR 43.0 mL/min (>60); GLUCOSE RANDOM 153.0 mg/dL (70-99); PHOSPHORUS 2.7 mg/dL (2.6-4.7); POTASSIUM,K 4.6 mEq/L (3.5-5.1); PROTEIN TOTAL,TP 5.9 g/dl (6.4-8.2); SODIUM,NA 142.0 mEq/L (136-145)
[2024-12-11] MEDS: Lactated Ringers 1,000 ML IV SCH (12:54)
[2024-12-11] MEDS: Acetaminophen/HYDROcodone 325-10 MG Tab PO PRN (12:58)
[2024-12-12 08:43] LABS: BASOPHILS ABSOLUTE AUTO 0.0 K/mm3 (0.0-0.2); BASOPHILS PERCENT AUTO 0.2 % (0.0-1.0); EOSINOPHILS ABSOLUTE AUTO 0.0 K/mm3 (0.0-0.4); EOSINOPHILS PERCENT AUTO 0.2 % (0.0-6.0); IMMATURE GRAN ABSOLUTE AUTO 0.06 K/mm3 (0.00-0.05); IMMATURE GRAN PERCENT AUTO 0.5 % (0.0-0.4); LYMPHOCYTES ABSOLUTE AUTO 2.8 K/mm3 (1.0-4.8); LYMPHOCYTES PERCENT AUTO 21.5 % (24.0-44.0); MEAN PLATELET VOLUME 12.3 fl (9.4-12.3); MONOCYTES ABSOLUTE AUTO 0.4 K/mm3 (0.0-0.8); MONOCYTES PERCENT AUTO 3.0 % (0.0-8.0); NEUTROPHILS ABSOLUTE AUTO 9.7 K/mm3 (1.8-7.7); NEUTROPHILS PERCENT AUTO 74.6 % (41.0-71.0); NRBC ABSOLUTE 0.00 (0.00-0.02); NRBC PERCENT 0.0 % (0.0-0.2); PLATELET COUNT,PLT 159 K/mm3 (150-400); RED BLOOD CELL COUNT 3.54 M/mm3 (4.10-5.30); WHITE BLOOD CELL COUNT,WBC 13.00 K/mm3 (3.9-11.3)
[2024-12-12] MEDS: Psyllium Husk Powder Sugar Free 5.85 GM Packet PO SCH (08:50)
[2024-12-12] MEDS: Ketamine 200 MG/20 ML MDV IVPUSH ONE (08:57)
[2024-12-12 09:24] LABS: A/G RATIO 0.5 (1-2); ALANINE AMINOTRANSFERASE,ALT 15.0 U/L (14-59); ASPARTATE AMNIOTRANSFERASE,AST 19.0 U/L (15-37); BILIRUBIN TOTAL 0.3 mg/dL (0.2-1.0); BLOOD UREA NITROGEN,BUN 20.0 mg/dL (7-18); CARBON DIOXIDE,CO2 25.0 mEq/L (21-32); CHLORIDE,CL 113.0 mEq/L (98-107); CREATININE 1.2 mg/dL (0.55-1.02); EST CRCL DRUG DOSING (CG) 52.56 mL/min; ESTIMATED GFR 51.0 mL/min (>60); GLUCOSE RANDOM 119.0 mg/dL (70-99); POTASSIUM,K 4.0 mEq/L (3.5-5.1); PROTEIN TOTAL,TP 5.5 g/dl (6.4-8.2); SODIUM,NA 144.0 mEq/L (136-145)
[2024-12-13 16:04] VITALS: BP 121/63
[2024-12-13 16:06] VITALS: PULSE 77
== END 2024-12-13 15:34 | disposition home health service (06) | DRG 329 ==
LOC: JD.ED 03:42 → JD.SDS 05:28 → JD.ICU 05:57
PROVIDERS: ADMIT Surgery; ATTEND Surgery
PROC: 0D1M0Z4 Bypass Descending Colon to Cutaneous, Open Approach (ICD-10-PCS; 2024-12-10)
PROC: 0DTN0ZZ Resection of Sigmoid Colon, Open Approach (ICD-10-PCS; principal; 2024-12-10 05:33)
DX: K63.1 Perforation of intestine (nontraumatic) (principal); K65.9 Peritonitis, unspecified; K21.9 Gastro-esophageal reflux disease without esophagitis; K59.09 Other constipation; G89.29 Other chronic pain; J45.909 Unspecified asthma, uncomplicated; I25.10 Atherosclerotic heart disease of native coronary artery without angina pectoris; Z79.82 Long term (current) use of aspirin; Z79.899 Other long term (current) drug therapy; Z79.52 Long term (current) use of systemic steroids; H54.7 Unspecified visual loss; E78.00 Pure hypercholesterolemia, unspecified; I10 Essential (primary) hypertension; I25.2 Old myocardial infarction; Z95.5 Presence of coronary angioplasty implant and graft; G43.909 Migraine, unspecified, not intractable, without status migrainosus; F17.200 Nicotine dependence, unspecified, uncomplicated; K66.8 Other specified disorders of peritoneum; M10.9 Gout, unspecified
CPT/HCPCS: 00840; 36410; 36415; 74177; 74177-26; 80053; 80306; 80307; 81003; 82947; 83690; 83735; 84100; 85025; 85027; 86850; 86900; 86901; 87070; 87075; 87076; 87077; 87186; 87205; 93005; 96365; 96375; 96376; 97112-GP; 97116-GP; 97162-GP; 99140; 99285-25; A9270-GY; C1758; J1100; J1171; J1836; J1885; J1956; J2003; J2250; J2274; J2371; J2405; J2704; J3010; J3475; J3490; J7030; J7120; Q9967